=== PATIENT | male | born 1960 | race Caucasian/White ===

== ENCOUNTER → 2019-07-30 10:37 | Outpatient (CLI) | payer OTHER, SELFPAY ==
--- NOTE | ~2019-07-30 | MR_ITS ---
EXAMINATION: MR shoulder RT wo con DATE: 07/30/2019 11:23 INDICATION: Worsening right shoulder and arm pain and numbness TECHNIQUE: Magnetic resonance imaging (MRI) of the right shoulder was performed without intravenous c ontrast. Sequences included axial PD-weighted FS FSE, coronal oblique PD-weighted FS FSE, coronal obl ique T2-weighted FS FSE, sagittal PD-weighted FS FSE, and sagittal T1-weighted SE. COMPARISON: None. FINDINGS: Coracoacromial arch: The acromion undersurface is curved in morphology (type II). The coracoacromial ligament is normal. M oderate acromioclavicular osteoarthritis with inferior directed osteophytes which abut the underlying supraspinatus muscle belly with effacement of the intervening fat plane. Rotator cuff: Mild supraspinatus and mild to moderate infraspinatus tendinopathy. There is a very small tear with i ntrasubstance focus of fluid signal intensity measuring up to 3 mm AP along the anterior aspect of th e middle facet footplate. On the oblique coronal images there is suggestion of extension of fluid sig nal across the bursal surface however no measurable bursal sided tear defect is appreciated. Teres mi nor tendon is normal. Mild subscapularis tendinopathy. Normal rotator cuff muscle bulk and signal. Biceps tendon, glenoid labrum and glenohumeral cartilage: Long head of the biceps tendon is normal. Superior labral tear extending from the 1:00 position anter iorly to the 10:30 position posteriorly. Glenohumeral cartilage is normal. Fluid: Physiologic amount of fluid in the glenohumeral joint and biceps tendon sheath. No loose osteochondra l bodies. Small amount of fluid in the subacromial/subdeltoid bursa consistent with mild bursitis. Bones: Bone alignment is normal. No fracture or pathologic marrow replacing process. IMPRESSION: 1. Mild to moderate infraspinatus tendinopathy with very small, intrasubstance tear along the middle facet footplate likely with overlying bursal sided fraying but no measurable bursal sided tear defect . 2. Moderate acromioclavicular osteoarthritis with underlying mild subacromial/subdeltoid bursitis. 3. Tear of the superior glenoid labrum. Reviewed, dictated and finalized at location A. [employer] IMPRESSION: 1. Mild to moderate infraspinatus tendinopathy with very small, intrasubstance tear along the middle facet footplate likely with overlying bursal sided frayin g but no measurable bursal sided tear defect. 2. Moderate acromioclavicular osteoarthritis with underlying mild subacromial/s ubdeltoid bursitis. 3. Tear of the superior glenoid labrum.
== END ==
PROVIDERS: Visit Provider Orthopaedic Surgery
DX: M19.011 Primary osteoarthritis, right shoulder (principal); S43.431A Superior glenoid labrum lesion of right shoulder, initial encounter; X58.XXXA Exposure to other specified factors, initial encounter
CPT/HCPCS: 73221